=== PATIENT | male | born 1995 | race Caucasian/White ===

== ENCOUNTER 2022-11-22 10:08 | Emergency (ER) | payer OTHER ==
[~2022-11-22] VITALS: Ht 175.3 cm; Wt 81.5 kg
[2022-11-22 10:09] VITALS: TEMP 97.5
[2022-11-22] MEDS ORDERED: VENTAER INH (12:07)
[2022-11-22] MEDS ORDERED: NAPR-885 PO (12:07)
[2022-11-22] MEDS ORDERED: BENZ200C70 PO (12:07)
[2022-11-22 12:14] VITALS: BP 139/74; O2SAT 100
== END 2022-11-22 12:17 | disposition home or self-care (01) ==
LOC: M ED 10:08
DX: R09.1 Pleurisy (principal); R05.2 Subacute cough; F10.10 Alcohol abuse, uncomplicated; Z79.52 Long term (current) use of systemic steroids; Z79.899 Other long term (current) drug therapy